=== PATIENT | female | born 1935 | race Caucasian/White ===

== ENCOUNTER 2019-07-21 16:11 | Emergency (ER) | payer MEDICARE, MEDICAID ==
[~2019-07-21] VITALS: Ht 142.2 cm; Wt 69.1 kg
[2019-07-21 17:39] VITALS: BP 168/88
== END 2019-07-21 17:43 | disposition home or self-care (01) ==
LOC: ER 16:12
DX: S20.212A Contusion of left front wall of thorax, initial encounter (principal); W01.0XXA Fall on same level from slipping, tripping and stumbling without subsequent striking against object, initial encounter; Y93.89 Activity, other specified; Y92.89 Other specified places as the place of occurrence of the external cause; Y99.8 Other external cause status
CPT/HCPCS: 71045; 99283

== ENCOUNTER 2023-05-29 23:12 | Emergency (ER) | payer BC, MEDICAID ==
[~2023-05-29] VITALS: Ht 139.7 cm; Wt 70.0 kg
[2023-05-29 23:23] VITALS: BP 180/82; PULSE 71; TEMP 97.8; O2SAT 99
[2023-05-30] MEDS ORDERED: ACET-3068 PO (03:08)
[2023-05-30] MEDS ORDERED: ibuprofen 200mg tablet PO ONE (03:10)
[2023-05-30] MEDS ORDERED: acetaminophen w/codeine (30MG) #3 tablet PO ONE (03:10)
[2023-05-30 03:42] VITALS: RESP 18
== END 2023-05-30 03:43 | disposition home or self-care (01) ==
LOC: ER 23:13
DX: S52.502A Unspecified fracture of the lower end of left radius, initial encounter for closed fracture (principal); Z88.0 Allergy status to penicillin; Z79.2 Long term (current) use of antibiotics; W19.XXXA Unspecified fall, initial encounter; Y93.89 Activity, other specified; Y92.89 Other specified places as the place of occurrence of the external cause; Y99.8 Other external cause status
CPT/HCPCS: 29125; 73090; 99283

== ENCOUNTER 2023-09-03 07:46 | Emergency (ER) | payer BC, MEDICAID ==
[~2023-09-03] VITALS: Ht 139.7 cm; Wt 66.4 kg
[~2023-09-03 07:46] MED LIST: ACET-3068 PO
[2023-09-03 08:10] VITALS: BP 142/75; PULSE 72; RESP 12; TEMP 97.9; O2SAT 98
[2023-09-03] MEDS: LIDOcaine 5% patch TP ONE (10:04)
[2023-09-03 10:46] LABS: D-DIMER 1.16 MG/L FEU (0-0.50)
[2023-09-03 11:26] LABS: BASOPHILS % (AUTO) 0.5 % (0-1); EOSINOPHILS # (AUTO) 0.2 X10'3 (0-0.9); EOSINOPHILS % (AUTO) 2.9 % (0-6); HEMATOCRIT 36.7 % (35.0-45.0); HEMOGLOBIN 12.1 g/dl (12.0-16.0); LYMPHOCYTES % (AUTO) 15.2 % (21-51); MEAN CORPUSCULAR HEMOGLOBIN 30.2 PG (27.0-31.0); MEAN CORPUSCULAR VOLUME 91.7 FL (78-98); MONOCYTES # (AUTO) 0.7 X10'3 (0-0.9); NEUTROPHILS # (AUTO) 4.8 X10'3 (1.8-7.7); NEUTROPHILS % (AUTO) 71.4 % (42-75); PLATELET COUNT 215 X10'3 (140-440); RED CELL DISTRIBUTION WIDTH 14.2 % (11.5-14.5); WHITE BLOOD COUNT 6.8 X10'3 (4.5-11.0)
[2023-09-03 11:31] LABS: ALBUMIN 3.1 G/DL (3.4-5.0); ANION GAP 12 (8-16); BLOOD UREA NITROGEN 16 MG/DL (7-18); BUN/CREATININE RATIO 23.2 (10.0-20.0); CALCIUM 8.6 MG/DL (8.5-10.1); CHLORIDE 101 MMOL/L (99-107); CREATININE 0.69 MG/DL (0.40-0.90); GLUCOSE 90 MG/DL (70-104); POTASSIUM 4.2 MMOL/L (3.5-5.1); SODIUM 137 MMOL/L (135-145); TOTAL CARBON DIOXIDE 24.5 MMOL/L (24-32); eCRCL 31 ML/MIN; eGFR 81 ML/MIN
[2023-09-03] MEDS ORDERED: iohexol 350MG/ML 100ml bottle IV ONE (11:40)
[2023-09-03] MEDS ORDERED: LIDO700A47 TOP (13:49)
== END 2023-09-03 14:25 | disposition home or self-care (01) ==
LOC: ER 07:46
DX: S20.212A Contusion of left front wall of thorax, initial encounter (principal); S29.011A Strain of muscle and tendon of front wall of thorax, initial encounter; Z88.0 Allergy status to penicillin; W19.XXXA Unspecified fall, initial encounter; Y93.89 Activity, other specified; Y92.89 Other specified places as the place of occurrence of the external cause; Y99.8 Other external cause status
CPT/HCPCS: 36415; 71045; 71275; 80048; 84484; 85025; 85379; 93005; 99285; J3490; Q9967